=== PATIENT | male | born 1985 | race Caucasian/White ===

== ENCOUNTER 2017-08-14 16:32 | Emergency (ER) | payer BC ==
--- NOTE | 2017-08-14 16:33 | ER Report ---
History and Physical Time Seen By MD: 16:33 HPI/ROS CHIEF COMPLAINT: r ankle injury HISTORY OF PRESENT ILLNESS: PT was snowboarding. When attempting to get off the ski lift pts snow board got caught and pt plantar flexed his foot and caused pain to ankle. Kim a crack. + swelling. pt unable to ambulate on right leg secondary to pain. no knee pain. PT did not hit his head. pt last ate at 2pm. PT took an old percocet for the pain. ROS: Musculoskeletal: No back pain. + r ankle pain Skin: No rashes. Neurological: no numbess Allergies: Coded Allergies: No Known Drug Allergies (Unverified , 08/14/17) Home Meds Reported Medications Oxycodone Hcl (OXYCONTIN) 20 Mg Tab.er.12h, 20 MG PO, TAB 08/14/17 Past Medical/Surgical History Pmhx: neg Pshx: hernia Reviewed Nurses Notes: Yes Hx Smoking: Yes Exposure to Second Hand Smoke?: No Hx Substance Use Disorder: No Hx Alcohol Use: Yes Constitutional Vital Sign - Last 24 Hours 08/14/17 08/14/17 08/14/17 08/14/17 16:36 16:38 16:41 17:00 Temp 98.6 Pulse 71 71 Resp 20 B/P (MAP) 140/76 (97) 140/76 138/75 (96) Pulse Ox 95 95 O2 Delivery Room Air 08/14/17 17:11 Pulse 70 Pulse Ox 96 Physical Exam General Appearance: The patient is alert, has no immediate need for airway protection and no signs of toxicity. Eyes: Pupils equal and round no pallor or injection, EOMI ENT: no pharyngeal erythema or exudates, Mucous membranes are moist Respiratory: There are no retractions, lungs are clear to auscultation. Cardiovascular: Regular rate and rhythm. pulses are equal and symmetrical Neurological: Cranial nerves II-XII grossly intact, no sensory or motor loss Skin: Warm and dry, no rashes. Musculoskeletal: Neck is supple non tender, no vertebral tenderness all extremities accept right lower leg are nontender, non swollen and have full range of motion; R lower extremity: no fibular head pain or joint line tenderness; + deformity noted distal tibia/fibula DIFFERENTIAL DIAGNOSIS: After history and physical exam differential diagnosis was considered for tib/fib fx, dislocation; contusion Medical Decision Making EKG/Imaging Imaging mildly displaced oblique fracure of the lateral malleolus; mild widening medial clear space suggesting medial ligament inury ED Course/Re-evaluation Clinical Indication for ER IV: IV Access ED Course xray 08/14/2017 5:42:52 pm + fx and suggested ligament injury. will place in posterior and sugar tong splint; crutches and pt will need follow up by orthopedics for possible surgery. Pt lives in [facility] and states he will follow up there. will make copies of xrays. Decision to Disposition Date: Aug 14, 2017 Decision to Disposition Time: 17:42 Depart Departure Latest Vital Signs Vital Signs Date Time Temp Pulse Resp B/P (MAP) Pulse Ox O2 Delivery O2 Flow Rate FiO2 08/14/17 17:11 70 96 08/14/17 17:00 138/75 (96) 08/14/17 16:38 98.6 20 Room Air Impression: Primary Impression: Ligament laxity Additional Impression: Fibula fracture Condition: Condition Unchanged Disposition: HOME OR SELF-CARE Referrals: [facility] New Scripts Hydrocodone Bit/Acetaminophen (HYDROCODON-ACETAMINOPHEN 5-325) 1 Each Tablet 1-2 EACH PO Q4-6H Y for PAIN, #20 TAB Prov: KAVON OSCAR V 08/14/17 Departure Forms: ER Transition Record, Medications Reconciliation, Off Work/ School Form, School or Work Release?: Work Number of days to be released: 7 Patient Portal Information Patient Instructions: Ankle Fracture (DC) Additional Instructions: You have a fractured ankle (fibula) with suspected ligament injury as well. You need to keep your ankle in the splint until you are seen by orthopedics. Use cruthes. Motrin, ice, elevate and rest. Lortab (narcotic) 1-2 every 4-6 hours as needed for severe pain. Problem Qualifiers Additional Impression: Fibula fracture Encounter type: initial encounter Fibula location: distal Fracture type: closed Fracture morphology: unspecified fracture morphology Laterality: right Qualified Codes: S82.831A - Other fracture of upper and lower end of right fibula, initial encounter for closed fracture KAVON OSCAR V Aug 14, 2017 16:33
[2017-08-14] MEDS ORDERED: OXYC20TA99 PO (16:42)
--- NOTE | 2017-08-14 17:29 | RADIOLOGY IMAGING REPORT ---
FACILITY: [facility] PATIENT NAME: Terell Tyson : 1985 MR: [id number] V: [id number] EXAM DATE: ORDERING PHYSICIAN: KAOVN OSCAR TECHNOLOGIST: Location: [facility] [place] Patient: Terell Tyson : 1985 Visit/Account:[id number] Date of Sevice: 08/14/2017 EXAMINATION: Right ankle 3 views HISTORY: Ankle pain. Fell snowboarding. COMPARISON: None. FINDINGS: Mildly displaced oblique fracture of the distal fibula extending to the level of the tibiotalar joint . The distal fracture fragment is displaced posteriorly by up to 3 mm, with small linear osseous frag ments along the proximal fracture margin The medial malleolus appears intact. There is mild widening of the medial clear space suspicious for medial ligamentous injury, measuring up to 6 mm. No other acute osseous findings about the right ankle. The talar dome appears intact. Soft tissue swe lling surrounds the ankle. IMPRESSION: 1. Mildly displaced oblique fracture of the lateral malleolus. 2. Mild widening of the medial clear space suggesting medial ligamentous injury. The medial malleolus is intact. 3. Soft tissue swelling surrounds the ankle. Report Dictated By: Sami Cho MD at 08/14/2017 5:22 PM Report E-Signed By: Sami Cho MD at 08/14/2017 5:26 PM WSN:[id number]
[2017-08-14 17:30] VITALS: BP 144/78
[2017-08-14] MEDS ORDERED: KETOROLAC 30 MG/ML VIAL IVP ONE (17:35)
[2017-08-14] MEDS ORDERED: MORPHINE 4 MG/ML SDV IVP ONE (17:40)
[2017-08-14] MEDS ORDERED: LOR5/325 PO (17:47)
[2017-08-14] MEDS ORDERED: ACET/HYDROC 5/325MG TH ER ONLY 2 TAB/BOTTLE PO ONE (18:15)
== END 2017-08-14 18:15 | disposition home or self-care (01) ==
LOC: ER 16:49
DX: S82.831A Other fracture of upper and lower end of right fibula, initial encounter for closed fracture (principal); M24.271 Disorder of ligament, right ankle
CPT/HCPCS: 29515; 73610; 96374; 96375; 99284; J1885; J2270